=== PATIENT | male | born 1965 | race Caucasian/White ===

== ENCOUNTER 2016-07-12 11:13 | Emergency (ER) | payer OTHER ==
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
[2016-07-12 15:22] VITALS: BP 149/88; PULSE 87; RESP 17; TEMP 97.6
== END 2016-07-12 15:23 | disposition home or self-care (01) ==
LOC: EC 11:13
DX: F31.9 Bipolar disorder, unspecified (principal); Z88.8 Allergy status to other drugs, medicaments and biological substances; Z91.041 Radiographic dye allergy status; I25.2 Old myocardial infarction; Z95.5 Presence of coronary angioplasty implant and graft; Z87.891 Personal history of nicotine dependence; Z79.82 Long term (current) use of aspirin; Z79.899 Other long term (current) drug therapy
CPT/HCPCS: 80306; 82075; 99284

== ENCOUNTER 2016-09-03 02:45 | Emergency (ER) | payer OTHER ==
[2016-09-03 03:02] VITALS: BP 142/90; PULSE 79; RESP 18; TEMP 97.4
[2016-09-03] MEDS ORDERED: IBUPROFEN 600 MG STARTER PACK 4 TAB BTL PO STA (03:32)
[2016-09-03] MEDS ORDERED: ACETAMINOPHEN TAB 500 MG TAB PO STA (03:32)
--- NOTE | 2016-09-03 03:34 | ED ---
Headache HPI - General Chief Complaint: Headache Stated Complaint: Headache Time Seen by Provider: 09/03/16 03:08 Source: RN notes reviewed, old records reviewed Mode of arrival: ambulatory Limitations: no limitations - History of Present Illness Initial Comments: Patient is a 51 year old male with a chief complaint of headache since 8am. Patient reports his headache is an 3/10, but has not taken anything for his headache. Patient has a history of bipolar disorder and NM. Patient reports that yesterday, he was sitting by the bailey and became thirsty and decided to drink the bailey water. Patient reports that he believes his headache is related to drinking the bailey water. Patient states that he needs a tetanus shot after drinking the bailey water. Patient states that he has been taking his Abilify. He denies fever, chills, nausea, vomiting, changes in vision, cough, chest pain, abdominal pain. - Related Data Home Medications Medication Instructions Recorded Confirmed Aspirin 81 mg PO DAILY 07/12/16 09/03/16 Atorvastatin Calcium [Lipitor] 40 mg PO HS 07/12/16 09/03/16 Krill Oil 350 mg PO BID 07/12/16 09/03/16 Naproxen Sodium 1,760 mg PO DAILY 07/12/16 09/03/16 ARIPiprazole [Abilify] 15 mg PO DAILY 09/03/16 09/03/16 Allergies Allergy/AdvReac Type Severity Reaction Status Date / Time coffee (Coffea arabica) Allergy Unknown Verified 07/12/16 12:15 Iodinated Contrast Media - Allergy Unknown Verified 07/12/16 12:15 Oral and iodine Allergy Unknown Verified 07/12/16 11:24 milk Allergy Unknown Verified 07/12/16 12:15 onion Allergy Unknown Verified 07/12/16 12:15 peanut Allergy Unknown Verified 07/12/16 12:15 pollen extracts Allergy Unknown Verified 07/12/16 12:15 tree nut Allergy Unknown Verified 07/12/16 12:15 steroids Allergy Unknown Uncoded 07/12/16 11:24 Review of Systems ROS Statement: Those systems with pertinent positive or pertinent negative responses have been documented in the HPI. ROS Other: All systems not noted in ROS Statement are negative. Past Medical History Past Medical History: Coronary Artery Disease (CAD), Myocardial Infarction ([place]) History of Any Multi-Drug Resistant Organisms: None Reported Past Surgical History: Heart Catheterization With Stent Past Psychological History: Bipolar Smoking Status: Never smoker Past Alcohol Use History: None Reported Past Drug Use History: None Reported General Exam - General Exam Comments Initial Comments: Well appearing 51 year old male, no acute distress. Limitations: no limitations General appearance: alert, in no apparent distress Head exam: Present: atraumatic, normocephalic, normal inspection, other (no tenderness over temporal area. ) Eye exam: Present: normal appearance, PERRL, EOMI. Absent: scleral icterus, conjunctival injection, periorbital swelling ENT exam: Present: normal exam, normal oropharynx, mucous membranes moist, TM's normal bilaterally Neck exam: Present: normal inspection. Absent: tenderness, meningismus, lymphadenopathy Respiratory exam: Present: normal lung sounds bilaterally. Absent: respiratory distress, wheezes, rales, rhonchi, stridor Cardiovascular Exam: Present: regular rate, normal rhythm, normal heart sounds. Absent: systolic murmur, diastolic murmur, rubs, gallop, clicks GI/Abdominal exam: Present: soft, normal bowel sounds. Absent: distended, tenderness, guarding, rebound, rigid Extremities exam: Present: normal inspection, full ROM, normal capillary refill. Absent: tenderness, pedal edema, joint swelling, calf tenderness Back exam: Present: normal inspection Neurological exam: Present: alert, oriented X3, CN II-XII intact Expanded Patient oriented to: Present: person, place, time Speech: Present: fluid speech Cranial nerves: EOM's Intact: Normal, Gag Reflex: Normal, Tongue Deviation: Normal, Facial Sensation: Normal Cerebellar function: Finger to Nose: Normal Upper motor neuron: Pronator Drift: Normal Sensory exam: Upper Extremity Light Touch: Normal, Lower Extremity Light Touch: Normal Motor strength exam: RUE: 5, LUE: 5, RLE: 5, LLE: 5 Eye Response: (4) open spontaneously Motor Response: (6) obeys commands Verbal Response: (5) oriented Joey Total: 15 Psychiatric exam: Present: normal affect, normal mood, anxious. Absent: depressed, agitated, flat affect, manic, homicidal ideation, suicidal ideation Skin exam: Present: warm, dry, intact, normal color. Absent: rash Course Vital Signs 09/03/16 02:59 Temperature 97.4 F L Pulse Rate 79 Respiratory 18 Rate Blood Pressure 142/90 O2 Sat by Pulse 97 Oximetry Medical Decision Making - Medical Decision Making Patient is a 51 year old male with a chief complaint of headache since 8am. Patient reports his headache is an 3/10, but has not taken anything for his headache. Patient has a history of bipolar disorder and NM. Patient reports that yesterday, he was sitting by the bailey and became thirsty and decided to drink the bailey water. Patient reports that he believes his headache is related to drinking the bailey water. Patient states that he needs a tetanus shot after drinking the bailey water. I discussed with the patient that a tetanus shot is not indicated for drinking bailey water. He states this is similiar to all previous headaches. He also reports he has had his tetanus shot within the last 7 years. Patient has no neurologic deficits at this time, I offered the patient a shot of toradol or oral medication and can do a CT scan. Patient refused Toradol, and stated he does not want a CT scan. He has no temporal tenderness, and no evidence of meningeal signs. I ordered patient to receive tylenol and motrin starter pack, and patient left before receiving the medication and discharge papers. I did discuss that if the headache becomes worse to return to the emergency department at once. Patient agrees with treatment plan and states he will comply. Disposition Clinical Impression: Headache Disposition: HOME SELF-CARE Condition: Good Instructions: Acute Headache (ED) Additional Instructions: Patient advised to return to the emergency department if any alarming signs or symptoms occur. Continue using Motrin or Tylenol for further headaches. Follow -up with primary care provider in the next 2-3 days. Referrals: Sagar Tim DO [Primary Care Provider] - 1-2 days Time of Disposition: 03:33
== END 2016-09-03 03:47 | disposition home or self-care (01) ==
LOC: EC 02:45
DX: R51 Headache (principal); F31.9 Bipolar disorder, unspecified; I25.10 Atherosclerotic heart disease of native coronary artery without angina pectoris; I25.2 Old myocardial infarction; Z79.82 Long term (current) use of aspirin; Z79.1 Long term (current) use of non-steroidal anti-inflammatories (NSAID); Z79.899 Other long term (current) drug therapy; Z91.018 Allergy to other foods; Z91.041 Radiographic dye allergy status; Z91.09 Other allergy status, other than to drugs and biological substances; Z91.011 Allergy to milk products; Z91.010 Allergy to peanuts; Z88.8 Allergy status to other drugs, medicaments and biological substances; Z95.5 Presence of coronary angioplasty implant and graft
CPT/HCPCS: 99284

== ENCOUNTER 2016-09-10 17:15 | Inpatient (IN) | payer MEDICAID, OTHER ==
--- NOTE | 2016-09-10 17:53 | ED ---
Psych HPI - General Chief Complaint: Psychiatric Symptoms Stated Complaint: Mental Health Time Seen by Provider: 09/10/16 17:28 Source: patient, RN notes reviewed Mode of arrival: ambulatory - History of Present Illness Initial Comments: 51-year-old male presents to the emergency department with a chief complaint of paranoia. Patient states that he recently lost his medications about one month ago. Patient states that since then he's become paranoid he feels that the police are after him he feels like people are trying his food. He states he feels like he needs help. He denies any suicidal or homicidal ideation. He states he went off the drugs because they were not helping with the paranoia he did meet with his doctor about 3 days after this happening changes in medications and he just stopped taking them and did not follow up. Recent states that he has not had any other symptoms with this. Patient denies any health concerns.Patient denies any recent fever, chills, shortness of breath, chest pain, back pain, abdominal pain, nausea vomiting, numbness or tingling, dysuria or hematuria, constipation or diarrhea, headaches or visual changes, or any other current symptoms. - Related Data Home Medications Medication Instructions Recorded Confirmed Atorvastatin Calcium [Lipitor] 40 mg PO HS 07/12/16 09/10/16 ARIPiprazole [Abilify] 15 mg PO DAILY 09/03/16 09/10/16 Aspirin EC [Ecotrin Low Dose] 81 mg PO DAILY 09/10/16 09/10/16 QUEtiapine FUMARATE [SEROquel] 200 mg PO HS 09/10/16 09/10/16 Allergies Allergy/AdvReac Type Severity Reaction Status Date / Time coffee (Coffea arabica) Allergy Unknown Verified 09/10/16 17:25 Iodinated Contrast Media - Allergy Unknown Verified 09/10/16 17:25 Oral and iodine Allergy Unknown Verified 09/10/16 17:25 milk Allergy Unknown Verified 09/10/16 17:25 onion Allergy Unknown Verified 09/10/16 17:25 peanut Allergy Unknown Verified 09/10/16 17:25 pollen extracts Allergy Unknown Verified 09/10/16 17:25 tree nut Allergy Unknown Verified 09/10/16 17:25 steroids Allergy Unknown Uncoded 09/10/16 17:25 Review of Systems ROS Statement: Those systems with pertinent positive or pertinent negative responses have been documented in the HPI. ROS Other: All systems not noted in ROS Statement are negative. Past Medical History Past Medical History: Coronary Artery Disease (CAD), Chest Pain / Angina, Myocardial Infarction ([place]) History of Any Multi-Drug Resistant Organisms: None Reported Past Surgical History: Heart Catheterization With Stent Past Psychological History: Bipolar, Depression Smoking Status: Former smoker Past Alcohol Use History: None Reported Past Drug Use History: None Reported General Exam Limitations: no limitations General appearance: alert, in no apparent distress Head exam: Present: atraumatic, normocephalic, normal inspection ENT exam: Present: normal exam, mucous membranes moist Neck exam: Present: normal inspection. Absent: tenderness, meningismus, lymphadenopathy Respiratory exam: Present: normal lung sounds bilaterally. Absent: respiratory distress, wheezes, rales, rhonchi, stridor Cardiovascular Exam: Present: regular rate, normal rhythm, normal heart sounds. Absent: systolic murmur, diastolic murmur, rubs, gallop, clicks Back exam: Present: normal inspection Neurological exam: Present: alert, oriented X3, CN II-XII intact. Absent: motor sensory deficit Psychiatric exam: Present: depressed. Absent: homicidal ideation, suicidal ideation Skin exam: Present: warm, dry, intact, normal color. Absent: rash Course Vital Signs 09/10/16 17:23 Temperature 97.8 F Pulse Rate 102 H Respiratory 20 Rate Blood Pressure 114/69 O2 Sat by Pulse 99 Oximetry Medical Decision Making - Medical Decision Making 51-year-old male presents to the emergency department with a chief complaint of paranoia. At this time the patient does not appear to be suffering from any acute medical emergencies. This and the patient appeared to be evaluated by psychiatry. At this time patient was evaluated and the patient will be admitted for psychiatric care. - Lab Data Lab Results 09/10/16 Range/Units 18:30 Urine Opiates Screen Not Detected (NotDetected) Ur Oxycodone Screen Not Detected (NotDetected) Urine Methadone Screen Not Detected (NotDetected) Ur Propoxyphene Screen Not Detected (NotDetected) Ur Barbiturates Screen Not Detected (NotDetected) U Tricyclic Antidepress Not Detected (NotDetected) Ur Phencyclidine Scrn Not Detected (NotDetected) Ur Amphetamines Screen Not Detected (NotDetected) U Methamphetamines Scrn Not Detected (NotDetected) U Benzodiazepines Scrn Not Detected (NotDetected) Urine Cocaine Screen Not Detected (NotDetected) U Marijuana (THC) Screen Not Detected (NotDetected) Disposition Clinical Impression: Depression Disposition: TRANSFER TO PSYCH HOSP/UNIT Time of Disposition: 19:45
[2016-09-10] MEDS ORDERED: MAG HYDROX/AL HYDROX/SIMETH 30 ML CUP PO PRN (22:43)
[2016-09-10] MEDS ORDERED: ACETAMINOPHEN TAB 325 MG TAB PO PRN (22:43)
[2016-09-10] MEDS ORDERED: ZIPRASIDONE 20 MG VIAL IM PRN (22:43)
[2016-09-10] MEDS ORDERED: LORazepam 1 MG TAB PO PRN (22:46)
[2016-09-10] MEDS ORDERED: LORazepam 2 MG/ML SYRINGE IM PRN (22:47)
[2016-09-11 00:36] VITALS: BMI 30.7
[2016-09-11 09:42] LABS: Basophils % (A) 1 %; CH 31.9; CHCM 35.5; Eosinophils % (A) 1 %; HCT 44.3 % (39.0-53.0); HDW 2.75; HGB 15.5 gm/dL (13.0-17.5); Luc # (Auto) 0.13; Luc % (Auto) 2; Lymphocytes # (A) 1.1 k/uL (1.0-4.8); Lymphocytes % (A) 20 %; MCH 31.5 pg (25.0-35.0); MCHC 34.9 g/dL (31.0-37.0); MCV 90.1 fL (80.0-100.0); Mean Platelet Volume 7.3; Monocytes # (A) 0.3 k/uL (0-1.0); Monocytes % (A) 6 %; Neutrophils % (A) 71 %; RBC 4.91 m/uL (4.30-5.90); WBC 5.6 k/uL (3.8-10.6); WBC (Perox) 5.77
[2016-09-11 10:02] LABS: ALT 69 U/L (21-72); AST 41 U/L (17-59); Alkaline Phosphatase 50 U/L (38-126); Anion Gap 14 mmol/L; Blood Urea Nitrogen 17 mg/dL (9-20); Calcium 9.6 mg/dL (8.4-10.2); Carbon Dioxide 26 mmol/L (22-30); Chloride 101 mmol/L (98-107); Glucose 157 mg/dL (74-99); Non-African American GFR(MDRD) >60 (>60 ml/min/1.73 sqM); Potassium 3.9 mmol/L (3.5-5.1); Sodium 141 mmol/L (137-145); Total Bilirubin 1.8 mg/dL (0.2-1.3); Total Protein 7.4 g/dL (6.3-8.2)
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
--- NOTE | 2016-09-11 14:46 | P.CONS ---
History of Present Illness - Reason for Consult Consult date: 09/11/16 Medical management - History of Present Illness This is a 51-year-old male. His primary care physician is Dr. Tmi in [place]. He has a past medical history of coronary artery disease status post heart catheterization and stent in 2012, bipolar disorder, depression, former tobacco use. Patient states that he follows with a psychiatrist, Dr. Wei and he sees him every 6 months. He states that in 2001 he was put into a shelter for respite care to get onto his medications and this is only a temporary thing to get him started. 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 He is also started jogging as of last summer. He states he has been on Latuda for 4 years and in July 2015 this was changed to Seroquel. He he had impotency problems and Dr. Wei decreased the dose which helped with this problem but his psychiatric issues worsened. He was then put on Abilify which did not seem to help. He states he started taking that on August 29 at some point ended up dumping his medications down the garbage disposal. He has had increased paranoia thoughts and new that he needed help and came into the hospital for treatment. Patient presented to [facility] emergency center with complaint of paranoia. Patient stopped taking his medications about one month ago and since then has become paranoid and feels like people are trying to poison his food. No suicidal or homicidal thoughts. Random blood sugar 157 and total bilirubin 1.8. Urine drug screen was negative. Review of Systems All systems: negative Constitutional: Denies chills, Denies fever Eyes: denies blurred vision, denies pain Ears, nose, mouth and throat: Denies headache, Denies sore throat Cardiovascular: Denies chest pain, Denies shortness of breath Respiratory: Denies cough Gastrointestinal: Denies abdominal pain, Denies diarrhea, Denies nausea, Denies vomiting Musculoskeletal: Denies myalgias Integumentary: Denies pruritus, Denies rash Neurological: Denies numbness, Denies weakness Psychiatric: Reports paranoia, Denies anxiety, Denies depression, Denies suicidal ideation Endocrine: Denies fatigue, Denies weight change Past Medical History Past Medical History: Coronary Artery Disease (CAD), Chest Pain / Angina, Hyperlipidemia, Myocardial Infarction ([place]) Additional Past Medical History / Comment(s): 2 herniated disc in the lumbar area Last Myocardial Infarction Date:: unknown History of Any Multi-Drug Resistant Organisms: None Reported Past Surgical History: Heart Catheterization With Stent, Tonsillectomy Additional Past Surgical History / Comment(s): Dental surgery Past Anesthesia/Blood Transfusion Reactions: No Reported Reaction Date of Last Stent Placement:: 2012 Past Psychological History: Bipolar, Depression Smoking Status: Former smoker Past Alcohol Use History: None Reported Additional Past Alcohol Use History / Comment(s): Patient was a smoker for 21 years and quit 21 years ago. He denies any medical marijuana, marijuana or street drug use. He denies any alcohol use. He is single and does not have any children. Past Drug Use History: None Reported - Past Family History Father Additional Family Medical History / Comment(s): Father is alive in his 70s with history of coronary artery disease and stent placement. Mother Additional Family Medical History / Comment(s): Mother is alive in her 70s with history of heart failure and hyperlipidemia. Brother(s) Additional Family Medical History / Comment(s): Patient has 2 brothers with no major medical problems. No mental health history. Medications and Allergies Home Medications Medication Instructions Recorded Confirmed Type Atorvastatin Calcium [Lipitor] 40 mg PO HS 07/12/16 09/10/16 History ARIPiprazole [Abilify] 15 mg PO DAILY 09/03/16 09/10/16 History Aspirin EC [Ecotrin Low Dose] 81 mg PO DAILY 09/10/16 09/10/16 History QUEtiapine FUMARATE [SEROquel] 200 mg PO HS 09/10/16 09/10/16 History Allergies Allergy/AdvReac Type Severity Reaction Status Date / Time coffee (Coffea arabica) Allergy Unknown Verified 09/11/16 00:40 Iodinated Contrast Media - Allergy Unknown Verified 09/11/16 00:40 Oral and iodine Allergy Unknown Verified 09/11/16 00:40 milk Allergy Unknown Verified 09/11/16 00:40 onion Allergy Unknown Verified 09/11/16 00:40 peanut Allergy Unknown Verified 09/11/16 00:40 pollen extracts Allergy Unknown Verified 09/11/16 00:40 tree nut Allergy Unknown Verified 09/11/16 00:40 steroids Allergy Unknown Uncoded 09/11/16 00:40 Physical Exam Vitals: Vital Signs Temp Pulse Resp BP 09/11/16 06:43 98.6 F 87 16 134/73 09/11/16 00:23 98.3 F 89 20 135/78 Intake and Output 09/10/16 09/11/16 09/11/16 22:59 06:59 14:59 Other: Weight 108.318 kg Gen: This is a 51-year-old male. He is cooperative and appears to be in no acute distress. HEENT: Head is atraumatic, normocephalic. Pupils equal, round. Sclerae is anicteric. NECK: Supple. No JVD. No lymphadenopathy. No thyromegaly. LUNGS: Clear to auscultation. No wheezes or rhonchi. No intercostal retractions. HEART: Regular rate and rhythm. No murmur. ABDOMEN: Soft. Bowel sounds are present. No masses. No tenderness. EXTREMITIES: No pedal edema. No calf tenderness. NEUROLOGICAL: Patient is awake, alert and oriented x3. Cranial nerves 2 through 12 are grossly intact. Results CBC & Chem 7: 09/11/16 09:01 09/11/16 09:01 Labs: Abnormal Lab Results - Last 24 Hours (Table) 09/11/16 Range/Units 09:01 Glucose 157 H (74-99) mg/dL Total Bilirubin 1.8 H (0.2-1.3) mg/dL Assessment and Plan Plan: 1. Paranoia in a patient with history of bipolar disorder. Patient admitted to the mental health unit. Continue current plan of care. 2. Coronary artery disease. Continue Lipitor 40 mg daily and aspirin 81 mg daily. 3. Hyperlipidemia. Continue Lipitor. 4. Remote history of tobacco use. No need for nicotine patch. Impression and plan of care have been directed as dictated by the signing physician. Klarissa Arias nurse practitioner acting as scribe for signing physician. Time with Patient: Greater than 30
[2016-09-11] MEDS: ASPIRIN 81 MG CHEW PO SCH (15:23)
[2016-09-11] MEDS: ATORVASTATIN 40 MG TAB PO SCH (20:54)
[2016-09-11] MEDS: ARIPiprazole 15 MG TAB PO SCH (20:54)
[2016-09-11] MEDS: OXcarbazepine 150 MG TAB PO SCH (20:54)
[2016-09-12] MEDS: ASPIRIN 81 MG CHEW PO SCH (08:32)
[2016-09-12] MEDS: OXcarbazepine 150 MG TAB PO SCH (08:33)
[2016-09-12] MEDS ORDERED: LORazepam 1 MG TAB PO PRN (08:59)
--- NOTE | 2016-09-12 12:18 | P.PN ---
Progress Note - Text SUBJECTIVE: I reviewed the medical record, interviewed Mr. Wilson and discuss his treatment and treatment plan during team meeting. He is 51-year- old male who has a history of a schizophrenia. He presented to unit voluntarily with complaints of increasing paranoia, restlessness and impaired sleep. It stopped all his psychotropic medications in July 2016. He was initially concerned that we had been dispensed Latuda. He talked about having been prescribed Latuda at maximum doses without benefit. We sat and reviewed his medication profile to demonstrate that Dr. Sousa did not prescribe Latuda. He complained that he was unable to sleep yesterday. After taking the Abilify and Trileptal he felt restless and shaky. He feels tired but is unable to sleep. He requested to receive the "muscle relaxant" administered when he first came to the unit. According to the MAR, we administered lorazepam 1 mg. We discussed treatment options and agreed to temporarily hold Trileptal determine if the restlessness is a result of the Trileptal. I also agreed to add a lorazepam order to allow him to receive a chest dosing if he cannot sleep. OBJECTIVE: He presented as a casually dressed somewhat malodorous 51-year-old male who was pleasant on approach. He made eye contact and appeared to attend to the interview. He had no distinguishing features or prominent physical abnormalities. He had a distressed facial expression. He is alert and oriented to person, place and time. He showed no ability of psychomotor activity. He had no abnormal involuntary movements. His gait was slow but steady. His speech was spontaneous with decreased rhythm but normal volume. He had no articulation difficulties. He was guarded and suspicious but did not express paranoid beliefs. He denied suicidal ideation or wishes. He denied homicidal ideation. He denied depressive cognitions such as hopelessness , helplessness and worthlessness. He did not express ideas reference. His thinking was concrete but his associations were coherent and logical. He did not demonstrate clang associations, perseveration, neologisms or blocking. He denied hallucinations didn't appear to. Possible panic to internal stimuli. Medical consult appreciated. ASSESSMENT: He continues complained of restlessness and impaired sleep. His complaints of tremor may be related to psychotropic medications but I suspect his symptoms were more related to his mental illness and his presenting complaint. PLAN: Continue inpatient hospitalization for treatment of psychosis. Hold Trileptal until he is reevaluated by Dr. Sousa but continue Abilify 15 mg at bedtime. Continue Ativan 1 mg by mouth/IM every 3 hours when necessary for agitation or acute anxiety and/or Geodon 20 mg IM twice a day when necessary for agitation or acute psychosis. Trial of lorazepam 1 mg at bedtime when necessary for sleep. 15 minute checks. Evaluate clinical status and response to treatment daily basis. Encourage participation in therapeutic groups and activities.
--- NOTE | 2016-09-12 13:39 | P.PN ---
Progress Note - Text Patient requested to see us as yesterday he was complaining of not having much urine output. Bladder scan showed no residual urine. His renal and liver function tests are normal. Patient was started on Flomax in case he had any urinary retention. Patient is now asking for HIV and STD testing. HIV, hepatitis panel, GC and chlamydia ordered.
[2016-09-12 14:50] LABS: Hepatitis B Surface Ag Index 0.07
[2016-09-12 14:56] LABS: Hepatitis B Core IgM Index 0.04
[2016-09-12 15:08] LABS: Hepatitis C Virus IgG Index 0.02
[2016-09-12 15:13] LABS: Hepatitis C Virus IgG Ab Negative (Negative)
[2016-09-12] MEDS: MAGNESIUM HYDROXIDE 2,400 MG/10 ML CUP PO PRN (16:30)
[2016-09-12] MEDS: ATORVASTATIN 40 MG TAB PO SCH (20:34)
[2016-09-12] MEDS: ARIPiprazole 15 MG TAB PO SCH (20:34)
[2016-09-12] MEDS: TAMSULOSIN 0.4 MG CAP.ER.24H PO SCH (20:34)
[2016-09-13 05:13] VITALS: RESP 16
[2016-09-13 07:34] LABS: HIV-1/HIV-2 Ab Screen NONREAC (NON REAC)
[2016-09-13] MEDS: ASPIRIN 81 MG CHEW PO SCH (08:52)
--- NOTE | 2016-09-13 13:37 | P.PN ---
Progress Note - Text SUBJECTIVE: Patient reports sleeping better ,less paranoia ,decrease in racing thoughts ,discussed his reaction to Abilify and Trileptal and holding Trileptal as patient reports restless feeling ,patient "I would rather take one medication,"denies any depressive symptoms ,denies any anxiety or panic attack , asked about result of STD testing OBJECTIVE: He presented as a casually dressed male who was pleasant on approach. He made eye contact and appeared to attend to the interview. He had no distinguishing features or prominent physical abnormalities. He had a distressed facial expression. He is alert and oriented to person, place and time. He showed no ability of psychomotor activity. He had no abnormal involuntary movements. His gait was slow but steady. His speech was spontaneous with decreased rhythm but normal volume. He had no articulation difficulties. He was guarded and suspicious but did not express paranoid beliefs. He denied suicidal ideation or wishes. He denied homicidal ideation. He denied depressive cognitions such as hopelessness , helplessness and worthlessness. He did not express ideas reference. His thinking was concrete but his associations were coherent and logical. He did not demonstrate clang associations, perseveration, neologisms or blocking. He denied hallucinations didn't appear to respond to internal stimuli. Medical consult added FLOMAX ,ordered STD testing (Pending) PLAN: Continue inpatient hospitalization for treatment of psychosis.Discontinue Trileptal ,will monitor symptoms and any side-effect from psychotropic medications
[2016-09-13] MEDS: ARIPiprazole 15 MG TAB PO SCH (21:10)
[2016-09-13] MEDS: ATORVASTATIN 40 MG TAB PO SCH (21:10)
[2016-09-13] MEDS: TAMSULOSIN 0.4 MG CAP.ER.24H PO SCH (21:10)
[2016-09-14] MEDS: ASPIRIN 81 MG CHEW PO SCH (08:54)
--- NOTE | 2016-09-14 15:37 | P.PN ---
Progress Note - Text Interval history: The patient is found in his room he follows me to an interview room. He reports that his mood is improving. He is glad that he was hospitalized and feels that the Abilify is re-stabilizing his mood. He states the feelings of paranoia are resolving. He feels less depressed. Sleep has been stable appetite is good. He has attended most groups. Vital signs reviewed. Mental status exam: The patient is a male appearing his stated age he is dressed in his own clothing. Hygiene grooming adequate. Eye contact good speech is fluent and spontaneous nonpressured. He reports an improving mood he reports no suicidal or homicidal ideation intent or plan. He is endorsing no auditory or visual hallucinations and at this time reports no paranoid or persecutory thinking. There is no evidence of abnormal involuntary movement. Insight and judgment improving. He is oriented to person place and date. Plan: The patient will continue on his current psychotropic medication. He appears to be stabilizing. We will continue to monitor him for safety and he is encouraged to continue participating in the milieu.
[2016-09-14] MEDS: MAGNESIUM HYDROXIDE 2,400 MG/10 ML CUP PO PRN (15:41)
[2016-09-14] MEDS: ATORVASTATIN 40 MG TAB PO SCH (20:58)
[2016-09-14] MEDS: TAMSULOSIN 0.4 MG CAP.ER.24H PO SCH (20:58)
[2016-09-14] MEDS: ARIPiprazole 15 MG TAB PO SCH (20:58)
[2016-09-15] MEDS: ASPIRIN 81 MG CHEW PO SCH (08:40)
--- NOTE | 2016-09-15 12:07 | P.PN ---
Progress Note - Text Interval history: The patient is found in group he follows me to an interview room. He states his mood is good. He continues to find the Abilify effective. He reports no side effects from the medication. He did sleep throughout the night. Energy level is sufficient appetite is adequate. He has been participating in the milieu. He finds himself provoked from time to time by peers but he feels he is able to handle that stress. Mental status exam: The patient is a male appearing his stated age. Eye contact is appropriate speech is fluent spontaneous nonpressured. He is reporting no acute suicidal or homicidal ideation intent or plan he is endorsing no auditory or visual hallucinations no specific delusions. He does not appear hypomanic or manic. He is able to remain calmly seated in the chair. No abnormal involuntary movements observed. Insight and judgment seems to be improving. He is oriented to person place and date. Affect is appropriately expressive he demonstrates appropriate smiling. No verbal or physical aggressiveness observed. Plan: The patient will continue on his current medication. We will continue to monitor him for safety. Vital signs reviewed. Dr. oSusa will resume care of this patient starting tomorrow.
[2016-09-15] MEDS: MAGNESIUM HYDROXIDE 2,400 MG/10 ML CUP PO PRN (19:16)
[2016-09-15] MEDS: ATORVASTATIN 40 MG TAB PO SCH (20:59)
[2016-09-15] MEDS: TAMSULOSIN 0.4 MG CAP.ER.24H PO SCH (20:59)
[2016-09-15] MEDS: ARIPiprazole 15 MG TAB PO SCH (20:59)
[2016-09-16 05:36] VITALS: BP 135/78; PULSE 123; TEMP 97.9
[2016-09-16] MEDS: ASPIRIN 81 MG CHEW PO SCH (08:36)
--- NOTE | 2016-09-17 10:28 | DS ---
DATE OF ADMISSION: 09/10/2016 DATE OF DISCHARGE: 09/16/2016 Consult physician: Routine. Patient was seen consulting provider: Klarissa Arias. Consult reason: Medical management. Do you want consulting provider notified: Yes. DISCHARGE DIAGNOSES: 1. Schizoaffective disorder in early remission. 2. Anxiety disorder not otherwise specified. Brief summary of the admission notes: Please refer to my history and physical examination dictated on September 11. Patient was admitted to the mental health unit on voluntary basis for paranoia and delusion. HOSPITAL COURSE: Patient was admitted on voluntary basis. He was seen by the medical collections representative who did recommend STD testing as he had concern about unprotected sex he had in 2011 and the result was hepatitis A and B were negative. Also hepatitis C is negative. HIV it is nonreactive. At the time of the admission, his urine drug screen was negative, complete blood work-up white blood cell ( ) hepatic function are within normal limits. TSH is normal. I did discuss with the patient and medication option and he did agree to restart back on Abilify 15 mg daily in addition, I did add Trileptal as a mood stabilizer; however, patient felt restless and very tired on the combination of these 2 medication so Trileptal was discontinued and patient was able to tolerate Abilify without having any side effect. Patient stated that his mood is good. He continued to find that the Abilify is very effective. He reports no side effects from the medication. He stated that he slept throughout the night. Energy level is fair. Appetite is adequate. He has been participating in therapeutic group and he denied any psychotic feature. No auditory or visual hallucination. No idea of reference, no delusion and no paranoia. Patient stated that he did have very good visit on the weekend with his mother and his brother and he is planning to move back to [facility] and to be close to his family, as he stated that since he moved to [facility] couple of years ago he has been having very limited social support system. MENTAL STATUS EXAMINATION: At the time of the discharge, patient is alert. He was very pleasant hygiene and grooming are adequate. Speech is spontaneous nonpressured. Thought process is linear. He is reporting no homicidal or suicide ideation, intent or plan. There is no evidence of hypomania or susan. There is no evidence of psychosis. He denied any auditory or visual hallucination. He denied any specific delusion. He denied any idea of reference. No abnormal involuntary movement. His insight and judgment seems to be improving. He is oriented to person, place and date. There is no verbal or physical aggression observed. PLAN: 1. The patient will be discharged from the mental health unit today to return back home. 2. Patient was given one month supply with one refill for Abilify 15 mg at bedtime for paranoia and as mood stabilizer. 3. Baby aspirin 81 mg daily. 4. Flomax 0.4 mg at bedtime. 5. Lipitor 40 mg at bedtime. 6. Patient to see his primary care physician, Dr. Sagar Restrepo for medical management. 7. Patient has an appointment at the [facility] in September 20 at 11:00. 8. There is no eminent safety risk and patient is appropriate for transition back to the outpatient care. 9. He was instructed to return to the emergency room if any acute safety concern. Patient does not have access to any firearms. 10. Patient condition at the time of the discharge, stable
== END 2016-09-16 09:28 | disposition home or self-care (01) | DRG 885 ==
LOC: EC 17:15 → 3MHU 20:36
PROVIDERS: ADMIT Psychiatry & Neurology Psychiatry; ATTEND Psychiatry & Neurology Psychiatry
DX: F25.9 Schizoaffective disorder, unspecified (principal); E78.5 Hyperlipidemia, unspecified; F41.9 Anxiety disorder, unspecified; I25.10 Atherosclerotic heart disease of native coronary artery without angina pectoris; I25.2 Old myocardial infarction; R48.0 Dyslexia and alexia; Z79.82 Long term (current) use of aspirin; Z79.899 Other long term (current) drug therapy; Z81.8 Family history of other mental and behavioral disorders; Z82.49 Family history of ischemic heart disease and other diseases of the circulatory system; Z87.891 Personal history of nicotine dependence; Z95.5 Presence of coronary angioplasty implant and graft; Z91.5 Personal history of self-harm; F59 Unspecified behavioral syndromes associated with physiological disturbances and physical factors; Z91.041 Radiographic dye allergy status
CPT/HCPCS: 80053; 80074; 80306; 82075; 84443; 85025; 87389; 99284